=== PATIENT | female | born 1980 | race Caucasian/White ===

== ENCOUNTER → 2017-12-29 | Outpatient (CLI) | payer OTHER ==
[~2017-12-29] MED LIST: ALPR-475 PO; SUMA100T3 PO
[2017-12-29 14:17] LABS: BASOPHILS # (AUTO) 0.08 x10^3/uL (0-0.1); BASOPHILS % (AUTO) 1 % (0-1); EOSINOPHILS # (AUTO) 1.05 x10^3/uL (0-0.4); EOSINOPHILS % (AUTO) 8 % (1-7); LYMPHOCYTES # (AUTO) 3.42 x10^3/uL (1-3.4); LYMPHOCYTES % (AUTO) 27 % (22-44); MD NO; MEAN CORPUSCULAR HEMOGLOBIN 28.7 pg (27.0-34.8); MEAN CORPUSCULAR HGB CONC 32.9 g/dL (32.4-35.8); MEAN CORPUSCULAR VOLUME 87.1 fL (80-100); MONOCYTES # (AUTO) 0.87 x10^3/uL (0.2-0.8); MONOCYTES % (AUTO) 7 % (2-9); NEUTROPHILS # (AUTO) 7.27 x10^3/uL (1.8-6.8); NEUTROPHILS % (AUTO) 57 % (42-75); PLATELET COUNT 384 x10^3/uL (130-400); RED BLOOD COUNT 4.81 x10^6/uL (3.82-5.3); RED CELL DISTRIBUTION WIDTH 13.9 % (9.6-15.2)
[2017-12-29 14:26] LABS: PROTHROMBIN TIME 10.3 Seconds (9.6-11.5)
[2017-12-29 14:30] LABS: ALBUMIN 3.8 g/dL (3.4-5.0); ANION GAP 6 mmol/L (5-15); CALCIUM 8.7 mg/dL (8.5-10.1); CHLORIDE 110 mmol/L (98-107)
[2017-12-29 14:36] LABS: ALANINE AMINOTRANSFERASE 29 U/L (12-78); ALKALINE PHOSPHATASE 96 U/L (45-117); BILIRUBIN,TOTAL 0.2 mg/dL (0.2-1.0); CREATININE 0.68 mg/dL (0.55-1.02); TOTAL PROTEIN 7.4 g/dL (6.4-8.2)
== END | disposition home or self-care (01) ==
LOC: STAR 13:02
PROVIDERS: ATTEND Specialist
DX: Z01.818 Encounter for other preprocedural examination (principal); R19.01 Right upper quadrant abdominal swelling, mass and lump
CPT/HCPCS: 36415; 71046; 80053; 84703; 85025; 85610; 85730; 86304; 93005

== ENCOUNTER 2018-01-08 05:41 | Day surgery (SDC) | payer OTHER ==
[~2018-01-08] VITALS: Ht 180.3 cm; Wt 133.0 kg
[2018-01-08] MEDS ORDERED: LIDOCAINE-MPF 1%, 2ML ONE (06:36)
[2018-01-08 06:48] VITALS: BP 132/70
[2018-01-08] MEDS ORDERED: ACET-1600 PO (06:48)
[2018-01-08] MEDS ORDERED: LACTATED RINGERS 1,000 ML IV SCH (06:50)
[2018-01-08 06:52] LABS: HCG UR SG 1.019 (1.003-1.030)
[2018-01-08] MEDS ORDERED: LIDOCAINE-MPF 1%, 2ML INFIL ONE (07:00)
[2018-01-08] MEDS ORDERED: METOCLOPRAMIDE 10MG TABLET ONE (07:07)
[2018-01-08] MEDS ORDERED: SCOPOLAMINE PATCH, 1.5MG PATCH.TD72 TD ONE ×2 (07:07→07:30)
[2018-01-08] MEDS ORDERED: ACETAMINOPHEN 500 MG TABLET ONE (07:07)
[2018-01-08] MEDS ORDERED: FAMOTIDINE 20 MG TABLET ONE (07:07)
[2018-01-08] MEDS ORDERED: GABAPENTIN 300 MG CAPSULE ONE (07:08)
[2018-01-08] MEDS ORDERED: ONDANSETRON ODT 8 MG ONE (07:08)
[2018-01-08] MEDS ORDERED: TAMSULOSIN 0.4 MG CAP.ER.24H ONE (07:08)
[2018-01-08] MEDS ORDERED: BUPIVACAINE 0.25% ONE (07:11)
[2018-01-08] MEDS ORDERED: HEPARIN 1,000 UNITS/ML, 10ML ONE (07:11)
[2018-01-08] MEDS ORDERED: EPINEPHRINE 1 MG/ML, 1ML ONE (07:11)
[2018-01-08] MEDS ORDERED: KETAMINE 10 MG/ML, 20ML ONE (07:12)
[2018-01-08] MEDS ORDERED: FENTANYL PF 250 MCG/5ML ONE (07:13)
[2018-01-08] MEDS ORDERED: MIDAZOLAM 1 MG/ML, 2ML ONE (07:13)
[2018-01-08] MEDS ORDERED: ONDANSETRON ODT 8 MG PO PRN (07:30)
[2018-01-08] MEDS ORDERED: GABAPENTIN 300 MG CAPSULE PO ONE (07:30)
[2018-01-08] MEDS ORDERED: TAMSULOSIN 0.4 MG CAP.ER.24H PO ONE (07:30)
[2018-01-08] MEDS ORDERED: FAMOTIDINE 20 MG TABLET PO ONE (07:30)
[2018-01-08] MEDS ORDERED: METOCLOPRAMIDE 10MG TABLET PO ONE (07:30)
[2018-01-08] MEDS ORDERED: ACETAMINOPHEN 500 MG TABLET PO ONE (07:30)
[2018-01-08] MEDS ORDERED: NEOSTIGMINE 1 MG/ML, 10ML ONE (07:47)
[2018-01-08] MEDS ORDERED: CEFOTETAN 2 GM ONE (07:47)
[2018-01-08] MEDS ORDERED: SUCCINYLCHOLINE 20 MG/ML, 10ML ONE (07:47)
[2018-01-08] MEDS ORDERED: DEXAMETHASONE 4 MG/ML, 1ML ONE (07:47)
[2018-01-08] MEDS ORDERED: PROPOFOL 10 MG/ML, 20ML ONE (07:47)
[2018-01-08] MEDS ORDERED: ROCURONIUM 10 MG/ML,10ML ONE (07:47)
[2018-01-08] MEDS ORDERED: morphine SULFATE 10 MG/ML, 1ML IV PRN (10:00)
[2018-01-08] MEDS ORDERED: MEPERIDINE/PF 25MG/0.5ML IVPush PRN (10:00)
[2018-01-08] MEDS ORDERED: PROMETHAZINE 25 MG/ML, 1ML IV PRN (10:00)
[2018-01-08] MEDS ORDERED: OXYcodone 5 MG/5 ML ORAL.SOL UDC PO PRN (10:00)
[2018-01-08] MEDS ORDERED: MEPERIDINE/PF 25MG/0.5ML ONE (10:03)
[2018-01-08] MEDS ORDERED: FENTANYL PF 100 MCG/2ML ONE (10:12)
[2018-01-08] MEDS: FENTANYL PF 100 MCG/2ML IV PRN ×2 (10:15→10:18)
[2018-01-08] MEDS ORDERED: GLYCOPYRROLATE 0.2MG/1ML, 5ML IVPush ONE (11:00)
== END 2018-01-08 12:35 | disposition home or self-care (01) ==
LOC: OUT 05:41
PROVIDERS: ATTEND Specialist
DX: N83.8 Other noninflammatory disorders of ovary, fallopian tube and broad ligament (principal); N85.2 Hypertrophy of uterus; J45.901 Unspecified asthma with (acute) exacerbation; G43.909 Migraine, unspecified, not intractable, without status migrainosus; F17.210 Nicotine dependence, cigarettes, uncomplicated; F41.9 Anxiety disorder, unspecified; E66.01 Morbid (severe) obesity due to excess calories; Z68.41 Body mass index [BMI] 40.0-44.9, adult; Z98.890 Other specified postprocedural states; Z72.89 Other problems related to lifestyle; Z86.69 Personal history of other diseases of the nervous system and sense organs; Z91.018 Allergy to other foods
CPT/HCPCS: 36415; 58661; 81025; 82397; 86336; 86850; 86900; 86923; 88112; 88305; 88331; J0171; J0330; J1100; J1644; J2175; J2250; J2704; J2710; J3010; J3490; J7120; Q0162; S0074